=== PATIENT | female | born 1960 | race Caucasian/White ===

== ENCOUNTER 2016-11-15 14:53 | Emergency (ER) | payer BC ==
[~2016-11-15] VITALS: Ht 162.6 cm; Wt 99.0 kg
[~2016-11-15 14:53] MED LIST: DIAZ5 PO; DILA100C PO; TAMO10TA2 PO
[2016-11-15 15:01] VITALS: BP 137/72; PULSE 89; RESP 16; TEMP 99.1; O2SAT 95
[2016-11-15] MEDS ORDERED: AUGM875T3 PO (15:09)
--- NOTE | 2016-11-15 15:13 | PD ---
HPI Chief Complaint: Bite or Sting Time Seen by Provider: 15:04 Travel History International Travel<30 days: No Contact w/Intl Traveler<30days: No Traveled to known affect area: No History of Present Illness HPI 56-year-old female that presents to the ED for evaluation of cat bite. Per patient she was bit by her own cat on her left thumb. Per patient is happened last night. Per patient she was trying to get her Into the house and apparently she started her and she bit her. Per patient she is concerned because his throat hurting not as bad but she's also having some swelling. She denies any fevers chills or sweats. Patient also does scratch. She does have some erythema to the thumb. Per patient her pain is 2 out of 10. She's been doing [id number] pain relievers with some relief but she is concerned more about infection. She is unsure of her last tetanus booster. She is able to move the finger fully. PFSH Past Medical History Cancer: Yes (LEFT BREAST) Diabetes: No Glaucoma: No Hepatitis: No Hiatal Hernia: No Hypertension: No Thyroid Disease: No ?: Not Past Surgical History Oral Surgery: Yes (T & A) Social History Alcohol Use: Yes (OCCAS.) Tobacco Use: No Allergies-Medications (Allergen,Severity, Reaction): Coded Allergies: No Known Allergies (Verified , 04/02/10) Reported Meds & Prescriptions Reported Meds & Active Scripts Active Reported Valium (Diazepam) 5 Mg Tab 5 Mg PO DAILY HS Nolvadex (Tamoxifen Citrate) 10 Mg Tab 10 Mg PO DIRECTED Dilantin Kapseals (Phenytoin Sodium) 100 Mg Cap 100 Mg PO DAILY pt takes 3 100 tabs at hs Review of Systems Except as stated in HPI: all other systems reviewed are Neg Physical Exam Narrative GENERAL: SKIN: Warm and dry. HEAD: Atraumatic. Normocephalic. EYES: Pupils equal and round. No scleral icterus. No injection or drainage. ENT: No nasal bleeding or discharge. Mucous membranes pink and moist. NECK: Trachea midline. No JVD. CARDIOVASCULAR: Regular rate and rhythm. RESPIRATORY: No accessory muscle use. Clear to auscultation. Breath sounds equal bilaterally. GASTROINTESTINAL: Abdomen soft, non-tender, nondistended. Hepatic and splenic margins not palpable. MUSCULOSKELETAL: Extremities without clubbing, cyanosis, or edema. No obvious deformities. Full range of motion of all fingers. Patient has 3 puncture wounds to the distal left thumb. Very well approximated. Some swelling and erythema noted. Slightly tender to touch but able to move the finger fully. No tendon injury or foreign body noted. Neurovascular intact with good capillary refill. NEUROLOGICAL: Awake and alert. No obvious cranial nerve deficits. Motor grossly within normal limits. Five out of 5 muscle strength in the arms and legs. Normal speech. PSYCHIATRIC: Appropriate mood and affect; insight and judgment normal. Data Data Last Documented VS Vital Signs Date Time Temp Pulse Resp B/P (MAP) Pulse Ox O2 Delivery O2 Flow Rate FiO2 11/15/16 15:01 99.1 89 16 137/72 (93) 95 Orders Orders Amoxicil-Clavulanate (Augmentin) (11/15/16 21:00) Wound Care (11/15/16 15:08) Tetanus/Diphtheria Tox Adult (Tetanus/Di (11/15/16 15:15) MDM Medical Decision Making Medical Screen Exam Complete: Yes Emergency Medical Condition: Yes Medical Record Reviewed: Yes Differential Diagnosis Cat-bite versus cellulitis versus infected cat bite Narrative Course 56-year-old female that presents to the ED for evaluation of possible infected cat bite. Patient was properly examined and was found to have signs and symptoms consistent with appears to be Quite. This time does not appear to be infected but because of the bite we will recommend Augmentin. Patient was given first dose of that here. Given prescription for it. She was given tetanus booster. Told to do wound care. Wound care was done here as well. See ED worsening symptoms. Follow with PCP. Diagnosis Primary Impression: Cat bite of finger Qualified Codes: S61.259A - Open bite of unspecified finger without damage to nail, initial encounter; W55.01XA - Bitten by cat, initial encounter Patient Instructions: General Instructions Additional Instructions: Motrin or Tylenol for pain. Apply Neosporin to the area. Ice. Keep area covered with a Band-Aid especially from outside. Wounds themselves will take at least 2-4 weeks to heal. Take medication as prescribed. If symptoms worsens come back to the ED. See ED worsening symptoms. Follow with PCP. Med/Other Pt SpecificInfo: Prescription(s) given Scripts Amoxicillin-Clavulanate (Augmentin) 875-125 Mg Tab 1 TAB PO BID for Infection, #10 TAB 0 Refills Prov: Nick Lubin MD 11/15/16 Disposition: 01 DISCHARGE HOME Condition: Stable Leighton Law Nov 15, 2016 15:13
[2016-11-15] MEDS ORDERED: TETANUS/DIPHTHERIA TOXOID ADULT 0.5 ML VIAL IM ONE (15:15)
[2016-11-15] MEDS ORDERED: AMOXICILLIN/CLAVULANATE K 875 MG TAB PO SCH (21:00)
== END 2016-11-15 15:38 | disposition home or self-care (01) ==
LOC: PHED 14:53
DX: S61.052A Open bite of left thumb without damage to nail, initial encounter (principal); W55.01XA Bitten by cat, initial encounter; Z23 Encounter for immunization
CPT/HCPCS: 90471; 90714